=== PATIENT | female | born 1965 | race Caucasian/White ===

== ENCOUNTER 2021-09-10 19:05 | Emergency (ER) | payer MEDICAID ==
[~2021-09-10] VITALS: Ht 162.6 cm; Wt 80.0 kg
[2021-09-10] MEDS ORDERED: SODIUM CHLORIDE 0.9% 1,000 ML IV ONE ×2 (19:30→20:15)
[2021-09-10 21:27] LABS: HEMATOCRIT. 44.1 % (36.0-48.0); HEMOGLOBIN. 15.1 g/dL (12.0-16.0); MEAN CORPUSCULAR HEMOGLOBIN 28.9 pg (28.0-32.0); MEAN CORPUSCULAR VOLUME 84.6 fL (81.0-99.0); PLATELET 234 x1000/uL (130-400); RED BLOOD CELL COUNT 5.21 mill/uL (4.2-5.4); RED CELL DISTRIBUTION WIDTH 13.8 % (11.6-14.6)
[2021-09-10 21:39] LABS: CHLORIDE 107 mEq/L (98-107)
[2021-09-10 21:50] LABS: PLATELET ESTIMATE NORMAL
[2021-09-10 23:13] LABS: CLARITY URINE CLEAR (CLEAR); COLOR URINE YELLOW (YELLOW); KETONES URINE TRACE (NEGATIVE); LEUKOCYTE ESTERASE URINE NEGATIVE (NEGATIVE); NITRITE URINE NEGATIVE (NEGATIVE); OCCULT BLOOD URINE NEGATIVE (NEGATIVE); PROTEIN URINE NEGATIVE (NEGATIVE); SPECIFIC GRAVITY URINE 1.019 (1.005-1.030)
[2021-09-11 01:11] VITALS: BP 117/64
== END 2021-09-11 02:14 | disposition short-term general hospital (02) ==
LOC: ER 19:05
DX: K80.20 Calculus of gallbladder without cholecystitis without obstruction (principal); G35 Multiple sclerosis; Z20.822 Contact with and (suspected) exposure to COVID-19
CPT/HCPCS: 36415; 70450; 71045; 74176; 80053; 81003; 83690; 84484; 85025; 87086; 87426; 96360; 96361; 99285; J7030; Z7610